=== PATIENT | female | born 1960 | race Caucasian/White ===

== ENCOUNTER 2017-08-18 19:53 | Emergency (ER) | payer MEDICAID ==
[2017-08-18] MEDS: ALBUTEROL 0.083% (NEB) 2.5 MG/3 ML AMP HHN (21:31)
[2017-08-18] MEDS: IBUPROFEN 600 MG TAB PO (21:49)
[2017-08-18 22:03] LABS: ADD UMIC YES; UR ASCORBIC ACID 20 mg/dL (NEGATIVE); UR BACTERIA FEW /HPF (NONE SEEN); UR BILIRUBIN (Dip) NEGATIVE (NEGATIVE); UR BLOOD (Dip) 3+ mg/dL (NEGATIVE); UR CLARITY CLOUDY (CLEAR); UR COLOR YELLOW (YELLOW); UR GLUCOSE (Dip) NEGATIVE (NEGATIVE); UR KETONES (Dip) NEGATIVE (NEGATIVE); UR LEUKOCYTE ESTERASE (Dip) 3+ Leu/ul (NEGATIVE); UR MUCUS FEW /HPF (NONE SEEN); UR NITRITE (Dip) NEGATIVE (NEGATIVE); UR RBC > 182 /HPF (0-5); UR SPECIFIC GRAVITY (Dip) 1.012 (1.003-1.030); UR SQUAMOUS EPITHELIAL CELL FEW /HPF (FEW); UR TOTAL PROTEIN (Dip) 2+ mg/dl (NEGATIVE); UR UROBILINOGEN (Dip) NEGATIVE (NEGATIVE); UR WBC 181 /HPF (0-5)
== END 2017-08-18 22:39 | disposition home or self-care (01) ==
LOC: FTE 19:53
DX: N39.0 Urinary tract infection, site not specified (principal); J45.901 Unspecified asthma with (acute) exacerbation; E11.9 Type 2 diabetes mellitus without complications; R05 Cough; Z79.84 Long term (current) use of oral hypoglycemic drugs
CPT/HCPCS: 81001; 94664; 99284-25

== ENCOUNTER 2017-11-06 19:24 | Emergency (ER) | payer MEDICAID ==
[2017-11-06] MEDS: SOD CHLORIDE 0.9% 1,000 ML IV (21:11)
[2017-11-06] MEDS: FAMOTIDINE 20 MG TAB PO (21:16)
[2017-11-06] MEDS: KETOROLAC 15 MG INJ IV (21:16)
[2017-11-06] MEDS: ONDANSETRON 4 MG INJ IV (21:16)
[2017-11-06 21:29] LABS: ADD MAN DIFF? NO
[2017-11-06 21:35] LABS: BASOPHIL # 0.1 10^3/ul (0.0-0.1); EOSINOPHILS # 0.3 10^3/ul (0.0-0.5); EOSINOPHILS % 3.2 % (0.0-7.0); HEMATOCRIT 42.6 % (37.0-47.0); HEMOGLOBIN 13.6 g/dl (12.0-16.0); LYMPHOCYTES # 2.9 10^3/ul (0.8-2.9); MEAN CORPUSCULAR HEMOGLOBIN 26.9 pg (29.0-33.0); MEAN CORPUSCULAR HGB CONC 31.9 g/dl (32.0-37.0); MEAN CORPUSCULAR VOLUME 84.4 fl (82.0-101.0); MEAN PLATELET VOLUME 10.5 fl (7.4-10.4); MONOCYTE # 0.5 10^3/ul (0.3-0.9); MONOCYTES % 5.6 % (0.0-11.0); NEUTROPHIL # 5.4 10^3/ul (1.6-7.5); NEUTROPHILS % 57.7 % (39.0-77.0); PLATELET COUNT 207 10^3/UL (140-415); RED BLOOD COUNT 5.05 10^6/ul (4.20-5.40); RED CELL DISTRIBUTION WIDTH 12.6 % (11.5-14.5)
[2017-11-06 21:35] LABS: WHITE BLOOD COUNT 9.4 10^3/ul (4.8-10.8)
[2017-11-06 21:39] LABS: ADD UMIC YES; UR ASCORBIC ACID 40 mg/dL (NEGATIVE); UR BACTERIA FEW /HPF (NONE SEEN); UR BILIRUBIN (Dip) NEGATIVE (NEGATIVE); UR BLOOD (Dip) NEGATIVE (NEGATIVE); UR CLARITY CLOUDY (CLEAR); UR COLOR AMBER (YELLOW); UR GLUCOSE (Dip) NEGATIVE (NEGATIVE); UR KETONES (Dip) NEGATIVE (NEGATIVE); UR LEUKOCYTE ESTERASE (Dip) 2+ Leu/ul (NEGATIVE); UR NITRITE (Dip) NEGATIVE (NEGATIVE); UR RBC 1 /HPF (0-5); UR SPECIFIC GRAVITY (Dip) 1.021 (1.003-1.030); UR SQUAMOUS EPITHELIAL CELL FEW /HPF (FEW); UR TOTAL PROTEIN (Dip) NEGATIVE (NEGATIVE); UR UROBILINOGEN (Dip) NEGATIVE (NEGATIVE); UR WBC 5 /HPF (0-5)
[2017-11-06 21:57] LABS: ALANINE AMINOTRANSFERASE 47 IU/L (13-69); ALBUMIN 4.1 g/dl (3.3-4.9); ALBUMIN/GLOBULIN RATIO 1.28; ALKALINE PHOSPHATASE 98 IU/L (42-121); ANION GAP 19 (8-16); ASPARTATE AMINO TRANSFERASE 26 IU/L (15-46); BLOOD UREA NITROGEN 20 mg/dl (7-20); CALCIUM 9.4 mg/dl (8.4-10.2); CARBON DIOXIDE 26 mmol/L (21-31); CHLORIDE 104 mmol/L (97-110); CREATININE 0.57 mg/dl (0.44-1.00); GLUCOSE 167 mg/dl (70-220); LIPASE 116 U/L (23-300); SODIUM 145 mmol/L (135-144); TOTAL PROTEIN 7.3 g/dl (6.1-8.1)
[2017-11-06] MEDS: CIPROFLOXACIN 250 MG TAB PO (22:17)
[2017-11-06] MEDS: ACETAMINOPHEN 325 MG TAB PO (22:26)
== END 2017-11-06 23:58 | disposition home or self-care (01) ==
LOC: FTE 23:58
DX: K57.92 Diverticulitis of intestine, part unspecified, without perforation or abscess without bleeding (principal); N30.00 Acute cystitis without hematuria; J45.909 Unspecified asthma, uncomplicated; E11.9 Type 2 diabetes mellitus without complications; E03.9 Hypothyroidism, unspecified; Z79.84 Long term (current) use of oral hypoglycemic drugs
CPT/HCPCS: 36415; 74176; 80053; 81001; 81025; 83690; 85025; 96374; 96375; 99285-25

== ENCOUNTER 2017-12-10 11:32 | Inpatient (IN) | payer MEDICAID ==
[2017-12-10] MEDS: ACETAMINOPHEN 325 MG TAB PO (12:37)
[2017-12-10] MEDS: METHYLPREDNISOLONE 125 MG INJ IV (12:37)
[2017-12-10 12:44] LABS: ADD MAN DIFF? NO
[2017-12-10] MEDS: SODIUM CHLORIDE 0.9% 1L BAG IV* (12:45)
[2017-12-10 12:46] LABS: BASOPHILS % 0.4 % (0.0-2.0); EOSINOPHILS # 0.1 10^3/ul (0.0-0.5); EOSINOPHILS % 0.6 % (0.0-7.0); HEMATOCRIT 42.5 % (37.0-47.0); HEMOGLOBIN 13.6 g/dl (12.0-16.0); LYMPHOCYTES # 1.1 10^3/ul (0.8-2.9); LYMPHOCYTES % 10.4 % (15.0-51.0); MEAN CORPUSCULAR VOLUME 84.5 fl (82.0-101.0); MEAN PLATELET VOLUME 10.1 fl (7.4-10.4); MONOCYTE # 0.7 10^3/ul (0.3-0.9); MONOCYTES % 7.1 % (0.0-11.0); NEUTROPHIL # 8.4 10^3/ul (1.6-7.5); NEUTROPHILS % 80.4 % (39.0-77.0); PLATELET COUNT 190 10^3/UL (140-415); RED BLOOD COUNT 5.03 10^6/ul (4.20-5.40); RED CELL DISTRIBUTION WIDTH 12.6 % (11.5-14.5)
[2017-12-10 12:46] LABS: WHITE BLOOD COUNT 10.5 10^3/ul (4.8-10.8)
[2017-12-10] MEDS: IPRATROPIUM (NEB) 0.5 MG/2.5 ML AMP INH (12:48)
[2017-12-10] MEDS: ALBUTEROL 0.5% (NEB) 2.5 MG/0.5 ML AMP INH (12:48)
[2017-12-10 13:01] LABS: INR 0.98; PROTIME 13.1 Sec (11.9-14.9)
[2017-12-10 13:03] LABS: LACTIC ACID 1.2 mmol/L (0.5-2.0)
[2017-12-10 13:05] LABS: ALANINE AMINOTRANSFERASE 31 IU/L (13-69); ALBUMIN 4.2 g/dl (3.3-4.9); ALBUMIN/GLOBULIN RATIO 1.07; ALKALINE PHOSPHATASE 112 IU/L (42-121); ANION GAP 16 (8-16); ASPARTATE AMINO TRANSFERASE 22 IU/L (15-46); BILIRUBIN,INDIRECT 0.3 mg/dl (0-1.1); BILIRUBIN,TOTAL 0.3 mg/dl (0.2-1.3); BLOOD UREA NITROGEN 13 mg/dl (7-20); CALCIUM 8.6 mg/dl (8.4-10.2); CARBON DIOXIDE 24 mmol/L (21-31); CHLORIDE 104 mmol/L (97-110); CREATININE 0.48 mg/dl (0.44-1.00); GLUCOSE 179 mg/dl (70-220); POTASSIUM 3.7 mmol/L (3.5-5.1); SODIUM 140 mmol/L (135-144); TOTAL PROTEIN 8.1 g/dl (6.1-8.1)
[2017-12-10 13:17] LABS: TROPONIN-I < 0.012 ng/ml (0.000-0.120)
[2017-12-10 13:21] LABS: PARTIAL THROMBOPLASTIN TIME 30.3 Sec (25.0-35.0)
[2017-12-10 13:45] LABS: THYROID STIMULATING HORMONE 0.275 MIU/L (0.465-4.680)
[2017-12-10] MEDS: CEFTRIAXONE 1 GM/50 ML (PMX) 50 ML IVPB (13:46)
[2017-12-10] MEDS ORDERED: ACETAMINOPHEN 325 MG TAB PO ×2 (14:00→14:30)
[2017-12-10] MEDS ORDERED: ONDANSETRON 4 MG INJ IV ×2 (14:00→14:30)
[2017-12-10] MEDS: AZITHROMYCIN 500MG/NS (PMX) 250 ML IVPB (14:29)
[2017-12-10] MEDS: KETOROLAC 15 MG INJ IV (14:29)
[2017-12-10] MEDS ORDERED: ALBUTEROL 0.083% (NEB) 2.5 MG/3 ML AMP HHN (14:30)
[2017-12-10] MEDS ORDERED: LORAZEPAM 2 MG INJ IV (14:30)
[2017-12-10] MEDS ORDERED: NACL 0.9% 3 ML SYG IV (14:30)
[2017-12-10] MEDS ORDERED: MAGNESIUM HYDROXIDE 30ML CUP PO (14:30)
[2017-12-10] MEDS ORDERED: DOCUSATE SODIUM 100 MG CAP PO (14:30)
[2017-12-10 14:47] LABS: ADD UMIC NO; UR ASCORBIC ACID NEGATIVE (NEGATIVE); UR BILIRUBIN (Dip) NEGATIVE (NEGATIVE); UR BLOOD (Dip) NEGATIVE (NEGATIVE); UR CLARITY CLEAR (CLEAR); UR COLOR YELLOW (YELLOW); UR GLUCOSE (Dip) NEGATIVE (NEGATIVE); UR KETONES (Dip) NEGATIVE (NEGATIVE); UR LEUKOCYTE ESTERASE (Dip) NEGATIVE Leu/ul (NEGATIVE); UR NITRITE (Dip) NEGATIVE (NEGATIVE); UR SPECIFIC GRAVITY (Dip) 1.019 (1.003-1.030); UR TOTAL PROTEIN (Dip) NEGATIVE (NEGATIVE); UR UROBILINOGEN (Dip) NEGATIVE (NEGATIVE)
[2017-12-10 14:56] LABS: HEMOGLOBIN A1C 6.6 % (0-5.9)
[2017-12-10] MEDS ORDERED: GLUCOSE GEL 15 GRAM TUBE PO ×2 (15:30)
[2017-12-10] MEDS ORDERED: GLUCAGON 1 MG INJ IM (15:30)
[2017-12-10] MEDS ORDERED: GLUCOSE GEL 15 GRAM TUBE BUCCAL (15:30)
[2017-12-10] MEDS ORDERED: DEXTROSE 50% 50 ML SYRINGE IV ×2 (15:30)
[2017-12-10] MEDS: LEVOFLOXACIN 500MG/D5W (PMX) 100 ML IVPB (15:49)
[2017-12-10 16:49] LABS: LACTIC ACID 2.1 mmol/L (0.5-2.0)
[2017-12-10] MEDS: INSULIN ASPART [NOVOLOG] 3 ML PEN SC ×3 (18:51→21:47)
[2017-12-10] MEDS: HYDROCODONE/APAP (5/325) TAB PO (21:45)
[2017-12-10] MEDS: METHYLPREDNISOLONE 40 MG INJ IV (21:45)
[2017-12-10] MEDS: INSULIN GLARGINE [LANtus] 3 ML PEN SC (21:48)
[2017-12-10] MEDS: CYCLOBENZAPRINE 10 MG TAB PO (22:02)
[2017-12-10] MEDS: ALBUTEROL 0.083% (NEB) 2.5 MG/3 ML AMP HHN (23:45)
[2017-12-11 06:21] LABS: ADD MAN DIFF? NO
[2017-12-11 06:23] LABS: WHITE BLOOD COUNT 10.1 10^3/ul (4.8-10.8)
[2017-12-11 06:23] LABS: BASOPHILS % 0.2 % (0.0-2.0); HEMATOCRIT 37.5 % (37.0-47.0); HEMOGLOBIN 12.3 g/dl (12.0-16.0); LYMPHOCYTES # 1.1 10^3/ul (0.8-2.9); MEAN CORPUSCULAR HEMOGLOBIN 27.8 pg (29.0-33.0); MEAN CORPUSCULAR HGB CONC 32.8 g/dl (32.0-37.0); MEAN CORPUSCULAR VOLUME 84.7 fl (82.0-101.0); MEAN PLATELET VOLUME 10.2 fl (7.4-10.4); MONOCYTE # 0.4 10^3/ul (0.3-0.9); MONOCYTES % 4.1 % (0.0-11.0); NEUTROPHIL # 8.4 10^3/ul (1.6-7.5); NEUTROPHILS % 82.9 % (39.0-77.0); PLATELET COUNT 202 10^3/UL (140-415); RED BLOOD COUNT 4.43 10^6/ul (4.20-5.40); RED CELL DISTRIBUTION WIDTH 12.5 % (11.5-14.5)
[2017-12-11] MEDS: LEVOTHYROXINE 88 MCG TAB PO (06:26)
[2017-12-11] MEDS ORDERED: LEVOTHYROXINE 100 MCG TAB PO ×2 (07:00)
[2017-12-11 07:07] LABS: ANION GAP 15 (8-16); BLOOD UREA NITROGEN 12 mg/dl (7-20); CALCIUM 8.9 mg/dl (8.4-10.2); CARBON DIOXIDE 24 mmol/L (21-31); CHLORIDE 107 mmol/L (97-110); CREATININE 0.42 mg/dl (0.44-1.00); GLUCOSE 225 mg/dl (70-220); POTASSIUM 3.7 mmol/L (3.5-5.1); SODIUM 142 mmol/L (135-144)
[2017-12-11] MEDS: ALBUTEROL 0.083% (NEB) 2.5 MG/3 ML AMP HHN ×3 (07:32→19:55)
[2017-12-11] MEDS: CYCLOBENZAPRINE 10 MG TAB PO ×3 (08:28→20:32)
[2017-12-11] MEDS: METHYLPREDNISOLONE 40 MG INJ IV ×2 (08:28→20:32)
[2017-12-11] MEDS: INSULIN ASPART [NOVOLOG] 3 ML PEN SC ×7 (09:18→20:33)
[2017-12-11] MEDS: SOD CHLORIDE 0.9% 500 ML IV (09:23)
[2017-12-11 11:31] LABS: LACTIC ACID 1.1 mmol/L (0.5-2.0)
[2017-12-11 14:47] LABS: LACTIC ACID 1.6 mmol/L (0.5-2.0)
[2017-12-11] MEDS: LEVOFLOXACIN 500MG/D5W (PMX) 100 ML IVPB (14:51)
[2017-12-11] MEDS: INSULIN GLARGINE [LANtus] 3 ML PEN SC (20:34)
[2017-12-12] MEDS: HYDROCODONE/APAP (5/325) TAB PO ×2 (02:04→09:31)
[2017-12-12] MEDS: LEVOTHYROXINE 88 MCG TAB PO (06:22)
[2017-12-12] MEDS: ALBUTEROL 0.083% (NEB) 2.5 MG/3 ML AMP HHN ×3 (08:04→19:26)
[2017-12-12] MEDS: predniSONE 20 MG TAB PO (08:19)
[2017-12-12] MEDS: CYCLOBENZAPRINE 10 MG TAB PO ×3 (08:19→20:18)
[2017-12-12] MEDS: INSULIN ASPART [NOVOLOG] 3 ML PEN SC ×7 (08:23→20:19)
[2017-12-12] MEDS ORDERED: GUAIFENESIN/DM 5ML CUP PO (12:00)
[2017-12-12] MEDS: LEVOFLOXACIN 500MG/D5W (PMX) 100 ML IVPB (13:51)
[2017-12-12] MEDS: INSULIN GLARGINE [LANtus] 3 ML PEN SC (20:20)
[2017-12-13] MEDS: HYDROCODONE/APAP (5/325) TAB PO (00:07)
[2017-12-13] MEDS: LEVOTHYROXINE 88 MCG TAB PO (06:17)
[2017-12-13] MEDS: INSULIN ASPART [NOVOLOG] 3 ML PEN SC ×4 (08:00→12:45)
[2017-12-13] MEDS: ALBUTEROL 0.083% (NEB) 2.5 MG/3 ML AMP HHN ×2 (08:34→14:05)
[2017-12-13 08:45] LABS: ADD MAN DIFF? NO
[2017-12-13] MEDS: CYCLOBENZAPRINE 10 MG TAB PO ×2 (08:47→12:43)
[2017-12-13] MEDS: predniSONE 20 MG TAB PO (08:48)
[2017-12-13 08:51] LABS: BASOPHIL # 0.1 10^3/ul (0.0-0.1); BASOPHILS % 0.8 % (0.0-2.0); EOSINOPHILS # 0.1 10^3/ul (0.0-0.5); EOSINOPHILS % 0.9 % (0.0-7.0); HEMOGLOBIN 13.8 g/dl (12.0-16.0); LYMPHOCYTES # 4.3 10^3/ul (0.8-2.9); LYMPHOCYTES % 34.4 % (15.0-51.0); MEAN CORPUSCULAR HEMOGLOBIN 27.1 pg (29.0-33.0); MEAN CORPUSCULAR HGB CONC 32.1 g/dl (32.0-37.0); MEAN CORPUSCULAR VOLUME 84.5 fl (82.0-101.0); MEAN PLATELET VOLUME 10.2 fl (7.4-10.4); MONOCYTE # 0.9 10^3/ul (0.3-0.9); MONOCYTES % 7.1 % (0.0-11.0); NEUTROPHIL # 6.6 10^3/ul (1.6-7.5); NEUTROPHILS % 53.1 % (39.0-77.0); PLATELET COUNT 284 10^3/UL (140-415); RED BLOOD COUNT 5.09 10^6/ul (4.20-5.40); RED CELL DISTRIBUTION WIDTH 12.4 % (11.5-14.5)
[2017-12-13 08:51] LABS: WHITE BLOOD COUNT 12.4 10^3/ul (4.8-10.8)
[2017-12-13 09:24] LABS: ANION GAP 13 (8-16); BLOOD UREA NITROGEN 20 mg/dl (7-20); CALCIUM 9.2 mg/dl (8.4-10.2); CARBON DIOXIDE 30 mmol/L (21-31); CHLORIDE 103 mmol/L (97-110); CREATININE 0.57 mg/dl (0.44-1.00); GLUCOSE 136 mg/dl (70-220); MAGNESIUM 2.1 mg/dl (1.7-2.5); PHOSPHORUS 4.5 mg/dl (2.5-4.9); POTASSIUM 3.5 mmol/L (3.5-5.1); SODIUM 142 mmol/L (135-144)
[2017-12-13] MEDS: LEVOFLOXACIN 500MG/D5W (PMX) 100 ML IVPB (16:25)
[2017-12-13] MEDS: SALMETEROL/FLUTICASONE 250/50 INHA INH (16:25)
[2017-12-14] MEDS ORDERED: predniSONE 20 MG TAB PO (09:00)
== END 2017-12-13 16:34 | disposition home or self-care (01) | DRG 871 ==
LOC: E/R 11:32 → MS4 13:53
DX: A41.9 Sepsis, unspecified organism (principal); J18.9 Pneumonia, unspecified organism; J45.901 Unspecified asthma with (acute) exacerbation; E03.9 Hypothyroidism, unspecified; E11.9 Type 2 diabetes mellitus without complications; Z79.84 Long term (current) use of oral hypoglycemic drugs
CPT/HCPCS: 36415; 71045; 80048; 80053; 81003; 81025; 82962; 83036; 83605; 83735; 84100; 84439; 84443; 84484; 85025; 85610; 85730; 87040; 87086; 93005; 94640; 94644; 94664; 96365; 96375; 99291-25

== ENCOUNTER 2018-10-09 20:16 | Emergency (ER) | payer SELFPAY, MEDICAID | END 2018-10-10 02:35 | disposition left against medical advice (07) | LOC: FTE 20:16 | DX: Z53.21 Procedure and treatment not carried out due to patient leaving prior to being seen by health care provider (principal) ==

== ENCOUNTER 2018-10-13 19:56 | Emergency (ER) | payer SELFPAY ==
[2018-10-13] MEDS: DEXAMETHASONE 10 MG/ML 1 ML INJ IM (23:47)
[2018-10-13] MEDS: IPRATROPIUM (NEB) 0.5 MG/2.5 ML AMP HHN (23:50)
[2018-10-13] MEDS: ALBUTEROL 0.083% (NEB) 2.5 MG/3 ML AMP HHN (23:50)
== END 2018-10-14 01:10 | disposition home or self-care (01) ==
LOC: FTE 19:56
DX: J40 Bronchitis, not specified as acute or chronic (principal); E11.9 Type 2 diabetes mellitus without complications; Z79.84 Long term (current) use of oral hypoglycemic drugs
CPT/HCPCS: 87400; 94664; 96372; 99284-25